=== PATIENT | female | born 1990 | race Caucasian/White ===

== ENCOUNTER 2019-03-10 16:57 | Inpatient (IN) | payer MEDICAID ==
[~2019-03-10] VITALS: Ht 157.5 cm; Wt 70.4 kg
[~2019-03-10 16:57] MED LIST: PREN1TAB49
--- NOTE | 2019-03-10 17:09 | TRIAGE ---
OB Triage Datetime Report Generated by CPN: 03/10/2019 17:08 Datetime: 03/10/2019 17:04 Vaginal Exam Dilatation (cms): 5.0 Effacement (%): 90 Station: -1 Exam By: LORIE NOVA Vaginal Bleeding: None Cervix, Consistency: Soft Cervix, Position: Midposition Presentation 'A': Cephalic Datetime: 03/10/2019 16:59 Assessment Type: Triage Maternal Assessment Level of Consciousness: Fully Conscious DTR's/Clonus: DTRs 2+; No Clonus Headache: Denies Blurred Vision: No Respiratory Effort: Unlabored; Regular Rhythm; Equal Expansion Breath Sounds, Left: Clear and Equal Breath Sounds, Right: Clear and Equal Nausea/Vomiting: Denies RUQ Epigastric Pain: Denies Lower Extremities Edema: None Degree: None Upper Extremities Edema: None Degree: None Facial Edema: None Fall Risk Assessment History of Falling: (0) No Secondary Diagnosis: (0) No Ambulatory Aid: (0) Bedrest/Nurse Assist IV Therapy: (0) No Gait: (0) Normal/Bedrest/Immobile Mental Status: (0) Oriented to Own Ability Fall Score: 0 Fall Risk Score Definition: No Risk: No action required Datetime: 03/10/2019 16:30 Time of Arrival: 03/10/2019 16:30 EGA: 39.5 Arrived By: Ambulatory Arrived From: Home Chief Complaint: R/O LABOR Movement: Present Contractions: Regular Rupture of Membranes: Denies Vaginal Bleeding: None Vaginal Discharge: Denies Recent Sexual Intercouse: Denies Abdominal Trauma: Not Applicable Patient Complaints: Contractions Additional Patient Complaints: NONE Time Provider Notified: 03/10/2019 17:00 Provider Notified: JUAN Initial Plan: MONITOR AND VE
[2019-03-10 17:10] VITALS: Ht 157.5 cm; Wt 70.4 kg
[2019-03-10] MEDS ORDERED: LACTATED RINGER'S 1,000 ML IV SCH (18:17)
[2019-03-10 18:19] VITALS: BP 104/62; PULSE 94; RESP 20
[2019-03-10] MEDS ORDERED: BUTORPHANOL 2 MG INJ IV PRN (18:30)
[2019-03-10] MEDS ORDERED: METHYLERGONOVINE 0.2 MG INJ IM PRN ×2 (18:30→19:30)
[2019-03-10] MEDS ORDERED: LIDOCAINE 1% (MPF) 30 ML INJ INJ PRN (18:30)
[2019-03-10] MEDS ORDERED: AMPICILLIN 2 GM/NS (PMX) 100 ML IV ONE (18:30)
[2019-03-10] MEDS ORDERED: OXYTOCIN 30 UNITS/LR 500 ML IV SCH ×3 (18:30→19:25)
[2019-03-10] MEDS ORDERED: CARBOPROST 250 MCG INJ IM PRN ×2 (18:30→19:30)
[2019-03-10] MEDS ORDERED: OXYTOCIN 30 UNITS/LR 500 ML IV PRN ×2 (18:30→19:30)
[2019-03-10] MEDS ORDERED: MISOPROSTOL 200 MCG TAB PR PRN ×2 (18:30→19:30)
--- NOTE | 2019-03-10 19:23 | HP ---
Date/Time of Note Date/Time of Note DATE: 03/10/19 TIME: 19:19 OB - History Hx of Present Free Text/Dictation 28-year-old 5 para 3 at 39 weeks and 5 days of gestation with estimated date of delivery March 12, 2019 She presents in active labor with regular contractions Patient reports positive movement, denies vaginal bleeding or leaking fluid GBS status is negative Estimated Due Date: Mar 12, 2019 : 5 Para: 3 Care: Good Care Obstetrical Complications: None Medical Complications: None Past Family/Social History * Past Medical, Surgical, Family and Obstetric Histories reviewed from chart. OB Admission Exam Vital Signs Vital Signs Vital Signs Date Temp Pulse Resp B/P (MAP) Pulse Ox O2 O2 Flow FiO2 Time Delivery Rate 03/10/19 98.0 94 20 104/62 98 Room Air 18:19 (76) Physical Exam HEENT: WNL Heart: Rhythm Normal Lungs: Clear, Equal Abdomen: WNL Extremities: Normal Reflexes: Normal Cervical Dilatation: 5cm Effacement: 100% Station: -1 Membranes: Intact Heart Rate: 140's Accelerations: Accelerations Present Decelerations: No Decelerations Varibility: Moderate Contractions on Admission: < 5 Minutes Apart Intensity: Moderate Last 72 hours Lab Results CBC & BMP 03/10/19 18:34 OB Assessment/Plan Reason for admission: active labor Other plan: Admit to labor and delivery Pain meds as needed Copies To: CC: HAO MARTINEZ BAHAREH MD Mar 10, 2019 19:23
[2019-03-10] MEDS: LACTATED RINGER'S 1,000 ML IV* SCH (19:25)
--- NOTE | 2019-03-10 19:25 | LDN ---
Date/Time of Note Date/Time of Note DATE: 03/10/19 TIME: 19:23 Delivery Summary Weeks of Gestation Term gestation Placenta Delivered: Spontaneously Meconium: none Episiotomy: No Estimated blood loss: 200 Sponge & Needle done & correct: Yes All needle counts correct: Yes Any foreign bodies felt in the: No Infant Delivery Information Sex Sex: male Apgars 1 Minute: 8 5 Minute: 9 Suctioning Nose & mouth suctioned at eli: Yes Delee suction performed: No Umbilical Cord Umbilical cord with: 3 Vessels Cord presentations: nuchal cord (Tight cord around the neck clamped and cut) Cord Blood was obtained: Yes Mother & Baby Disposition Disposition Baby's weight 7 pounds 1 ounces/ 3215 g Copies To: CC: HAO MARTINEZ ; PASQUALE ROUSE MD Mar 10, 2019 19:25
[2019-03-10] MEDS ORDERED: DIBUCAINE 1% 30 GM OINT TOP PRN (19:30)
[2019-03-10] MEDS ORDERED: SENNA/DOCUSATE NA (8.6MG/50MG) TAB PO PRN (19:30)
[2019-03-10] MEDS ORDERED: LANOLIN HPA 1 PKT TOP PRN (19:30)
[2019-03-10] MEDS ORDERED: ACETAMINOPHEN 325 MG TAB PO PRN ×2 (19:30)
[2019-03-10] MEDS ORDERED: MAGNESIUM HYDROXIDE 30ML CUP PO PRN (19:30)
[2019-03-10] MEDS ORDERED: WITCH HAZEL/GLYCERIN PAD PR PRN (19:30)
[2019-03-10] MEDS ORDERED: BENZOCAINE 20% 56 ML SPRAY TOP PRN (19:30)
[2019-03-10] MEDS ORDERED: ONDANSETRON 4 MG INJ IV PRN (19:30)
[2019-03-10 21:15] VITALS: BP 107/69; PULSE 66; RESP 18
[2019-03-10] MEDS: AMPICILLIN 1 GM/NS (PMX) 50 ML IV SCH (21:30)
[2019-03-10] MEDS: IBUPROFEN 600 MG TAB PO PRN (22:07)
[2019-03-11 00:35] VITALS: BP 105/64; PULSE 68; RESP 18
[2019-03-11] MEDS: AMPICILLIN 1 GM/NS (PMX) 50 ML IV SCH ×3 (01:30→06:46)
[2019-03-11] MEDS: LACTATED RINGER'S 1,000 ML IV* SCH ×2 (03:06→11:25)
[2019-03-11 04:00] VITALS: BP 112/70; PULSE 62; RESP 17
[2019-03-11] MEDS: IBUPROFEN 600 MG TAB PO PRN ×3 (05:49→22:38)
[2019-03-11 08:00] VITALS: BP 97/60; PULSE 60; RESP 18
--- NOTE | 2019-03-11 09:03 | PN ---
Date/Time of Note Date/Time of Note DATE: 03/11/19 TIME: 09:00 OB Subjective Subjective Subjective PPD# 1 Patient is doing well. She denies nausea, vomiting, shortness of breath, chest pain, headache. She has been ambulating without difficulty, tolerating regular diet. Pain is well controlled on current medications OB Objective Objective Objective VS - Last 72 Hours, by Label Date Temp Pulse Resp B/P (MAP) Pulse Ox O2 O2 Flow FiO2 Time Delivery Rate 03/11/19 98.1 60 18 97/60 (72) 08:00 03/11/19 98.3 62 17 112/70 Room Air 04:00 (84) 03/11/19 98.4 68 18 105/64 Room Air 00:35 (78) 03/10/19 98.2 66 18 107/69 Room Air 21:15 (82) 03/10/19 98.0 94 20 104/62 98 Room Air 18:19 (76) General: AAO X 3, comfortable, NAD, appropriate mood and affect. ABD: +BS. Soft, non-tender. Uterus 2 cm below umbilicus Flank: No CVA tenderness (B/L) LE: Mild edema. No clubbing, cyanosis, thigh or calf tenderness (B/L). Homans 'sign is negative Laboratory Tests Test 03/10/19 18:34 03/11/19 07:10 03/11/19 07:46 White Blood Count 11.4 10^3/ul 13.4 10^3/ul Red Blood Count 4.59 10^6/ul 3.85 10^6/ul Hemoglobin 11.9 g/dl 10.3 g/dl Hematocrit 38.3 % 32.4 % Mean Corpuscular Volume 83.4 fl 84.2 fl Mean Corpuscular 25.9 pg 26.8 pg Hemoglobin Mean Corpuscular 31.1 g/dl 31.8 g/dl Hemoglobin Concent Red Cell Distribution 14.6 % 14.3 % Width Platelet Count 235 10^3/UL 199 10^3/UL Mean Platelet Volume 10.2 fl 9.8 fl Immature Granulocytes % 0.500 % 0.300 % Neutrophils % 75.3 % 73.7 % Lymphocytes % 18.7 % 20.0 % Monocytes % 4.7 % 5.1 % Eosinophils % 0.6 % 0.7 % Basophils % 0.2 % 0.2 % Nucleated Red Blood Cells 0.0 /100WBC 0.0 /100WBC % Immature Granulocytes # 0.060 10^3/ul 0.040 10^3/ul Neutrophils # 8.6 10^3/ul 9.9 10^3/ul Lymphocytes # 2.1 10^3/ul 2.7 10^3/ul Monocytes # 0.5 10^3/ul 0.7 10^3/ul Eosinophils # 0.1 10^3/ul 0.1 10^3/ul Basophils # 0.0 10^3/ul 0.0 10^3/ul Nucleated Red Blood Cells 0.0 10^3/ul 0.0 10^3/ul # Prothrombin Time 12.8 Sec Prothrombin Time Ratio 1.0 INR International 0.95 Normalized Ratio Activated 28.8 Sec Partial Thromboplast Time Lab Scanned Report [facility] [id number] OB Assessment/Plan Other plan: 28 years old -0-1-4 s/p normal vaginal delivery at 39 weeks and 5 days. PPD#1 - AF, VSS - Baby is doing well, at bed side. She is bonding well - Contraception methods with R/B/A/FR discussed - Continue care - Discharge home - Rx and instruction given - Follow up in 2 and 6 weeks at clinic HAO MARTINEZ Mar 11, 2019 09:03
[2019-03-11 11:47] VITALS: BP 115/68; PULSE 67; RESP 18
[2019-03-11 15:45] VITALS: BP 112/80; PULSE 73; RESP 18
[2019-03-11 20:15] VITALS: BP 117/76; PULSE 84; RESP 17
[2019-03-12 04:00] VITALS: BP 111/69; PULSE 65; RESP 18
--- NOTE | 2019-03-12 07:45 | DS ---
Date/Time of Note Date/Time of Note DATE: 03/12/19 TIME: 07:44 Obstetrical Discharge Record Final Diagnosis Final Diagnosis: Term delivered Other Final Diagnosis 28 years old -0-1-4 s/p normal vaginal delivery at 39 weeks and 5 days. PPD#2. [id number] course was unremarkable. She is ambulating and tolerating regular diet. She is voiding without difficulty. Pain is well controlled on current medication. - AF, VSS - Baby is doing well, at bed side. She is bonding well - Contraception methods with R/B/A/FR discussed - Continue care - Discharge home - Rx and instruction given - Follow up in 2 and 6 weeks at clinic Vaginal Delivery Obstetrical Delivery: Spontaneous Condition on Discharge Physical Assessment Last Vitals: Vital Signs Date Temp Pulse Resp B/P (MAP) Pulse Ox O2 O2 Flow FiO2 Time Delivery Rate 03/12/19 98.2 65 18 111/69 Room Air 04:00 (83) 03/10/19 98 18:19 Voiding: Yes Bowel Movement: Yes Breast: Soft, non-tender Fundus: Firm Calf Tenderness: No Patient Condition: Stable HAO MARTINEZ Mar 12, 2019 07:45
[2019-03-12 08:00] VITALS: BP 118/74; PULSE 75; RESP 18; RESP 20
[2019-03-12] MEDS: IBUPROFEN 600 MG TAB PO PRN (08:01)
--- NOTE | 2019-03-13 15:37 | DELSUM ---
Delivery Summary A-C Datetime Report Generated by CPN: 03/13/2019 15:36 DELIVERY PERSONNEL Data Integrity Specialist: Sebunnya, Phoebe MATERNAL INFORMATION Delivery Anesthesia: None Medications in Delivery: LR 500ML PITOCIN 30 UNITS Delivery QBL (ml): 200 Placenta Cultured: No Maternal Complications: None; Other LABOR SUMMARY EDC: 03/12/2019 00:00 No. Babies in Womb: 1 Attempted: No Labor Anesthesia: None LABOR INFORMATION Reason for Induction: Not Applicable Onset of Labor: 03/10/2019 10:30 Complete Dilatation: 03/10/2019 18:48 Oxytocin: N/A Group B Beta Strep: Negative Antibiotics # of Doses: 0 Steroids Given: None Reason Steroids Not Administered: Not Applicable MEMBRANES Membranes Rupture Method: Spontaneous Rupture of Membranes: 03/10/2019 18:00 Length of Rupture (hr): 0.87 Amniotic Fluid Color: Clear Amniotic Fluid Amount: Large Amniotic Fluid Odor: Normal STAGES OF LABOR Stage 1 hr: 8 Stage 1 min: 18 Stage 2 hr: 0 Stage 2 min: 4 Stage 3 hr: 0 Stage 3 min: 6 Total Time in Labor hr: 8 Total Time in Labor min: 28 VAGINAL DELIVERY Episiotomy: None Laceration Extension: N/A Laceration Type: None Laceration Repair: No Initial Vag Sponge Count: 10 Final Vag Sponge Count: 10 Initial Vag Sharps Count: 1 Final Vag Sharps Count: 1 Sponge Count Correct: Yes; Vaginal Sweep Performed Sharps Count Correct: Yes BABY A INFORMATION Delivery Date/Time: 03/10/2019 18:52 Method of Delivery: Vaginal Born in Route : No : N/A Forceps: N/A Vacuum Extraction: N/A Shoulder Dystocia : N/A SHOULDER DYSTOCIA BABY A Delivery Date/Time: 03/10/2019 18:52 PRESENTATION/POSITION BABY A Presentation: Cephalic Cephalic Presentation: Vertex Vertex Position: Left Occipital Anterior Breech Presentation: N/A PLACENTA INFORMATION BABY A Placenta Delivery Time : 03/10/2019 18:58 Placenta Method of Delivery: Spontaneous Placenta Status: Delivered SCORES BABY A Heart Rate 1 min: >100 bpm Resp Effort 1 min: Good Cry Reflex Irritability 1 min: Cough/Sneeze/Pulls Away Muscle Tone 1 min: Active Motion Color 1 min: Blue/Pale Resuscitation Effort 1 min: Tactile Stimulation SCORE 1 MIN: 8 Heart Rate 5 min: >100 bpm Resp Effort 5 min: Good Cry Reflex Irritability 5 min: Cough/Sneeze/Pulls Away Muscle Tone 5 min: Active Motion Color 5 min: Body [place], Extremit Blue Resuscitation Effort 5 min: Tactile Stimulation SCORE 5 MIN: 9 INFORMATION BABY A Gestational Age at Delivery: 39.5 Gestational Status: Full Term- 39- 40.6 Weeks Infant Outcome : Liveborn Infant Condition : Stable Infant Sex: Male IDENTIFICATION/MEDS BABY A ID Band Number: [id number] ID Band Location: Right Leg; Left Arm Sensor Applied: Yes Sensor Number: [id number] Sensor Location : Cord Clamp Vitamin K Given : Not Given Erythromycin Given: Not Given WEIGHT/LENGTH BABY A Birthweight (gm): 3215 Weight (lb): 7 Infant Weight (oz): 1 Length (in): 19.50 Length (cm): 49.53 CORD INFORMATION BABY A No. Cord Vessels: 3 Nuchal Cord : Around Neck x1, Tight Nuchal Cord- Other: 0 True Knot: 0 Cord Blood Taken: Yes Banking/Donate Info: NO Suction: Mouth; Nose ASSESSMENT BABY A Complications: Multiple Variable Decels Physical Findings at Delivery: Within Normal Limits Infant Respirations: Appears Normal Certified Nurse Operating Room/ALS Called : No Infant Care By: Dong rn Transferred To: Remains with Mother
== END 2019-03-12 13:05 | disposition home or self-care (01) | DRG 807 ==
LOC: OBT 16:57 → L-D 16:58 → OBT 17:00 → L-D 17:17 → PP1 21:12
PROVIDERS: ADMIT Obstetrics & Gynecology; ATTEND Obstetrics & Gynecology
PROC: 10E0XZZ Delivery of Products of Conception, External Approach (ICD-10-PCS; principal; 2019-03-10)
DX: O69.81X0 Labor and delivery complicated by cord around neck, without compression, not applicable or unspecified (principal); Z37.0 Single live birth; Z3A.39 39 weeks gestation of pregnancy
CPT/HCPCS: 85025; 85610; 85730; 86592; 86850; 86900; 86901; 99464; G0463; J7120